=== PATIENT | female | born 1970 | race American Indian/Alaskan Native ===

== ENCOUNTER 2017-02-20 18:30 | Emergency (ER) | payer MEDICARE ==
[2017-02-20 20:13] VITALS: BP 138/80
--- NOTE | 2017-02-20 22:06 | Emergency Department Report ---
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 Patient reports that she does have a past medical history of recurrent ear infections. She denies any nausea vomiting. Upon evaluation of her chart noticed that her blood pressure was elevated at 160/105. Her repeat blood pressure came to 191/99. Discussed with patient that we'll most likely would need to start her on blood pressure medicine. He reports no other past medical history she is currently taking no medication. MD complaint: ear pain -: week(s) (2) Location: R ear, L ear Severity: severe Severity scale (0 -10): 10 Quality: aching Consistency: intermittent - Related Data Previous Rx's Medication Instructions Recorded Last Taken Type Acetaminophen/Codeine [Tylenol 1 tab PO Q6H PRN #20 tab 02/20/17 Unknown Rx /Codeine # 3 tab] Hydrochlorothiazide [HCTZ] 25 mg PO QDAY #30 tablet 02/20/17 Unknown Rx amLODIPine [Norvasc] 5 mg PO DAILY #30 tab 02/20/17 Unknown Rx Allergies Allergy/AdvReac Type Severity Reaction Status Date / Time No Known Allergies Allergy Unverified 02/20/17 18:38 ED Dental HPI - General Chief complaint: Earache Stated complaint: LT EAR PAIN Time Seen by Provider: 02/20/17 20:56 Source: patient Mode of arrival: Ambulatory Limitations: Other - Related Data Previous Rx's Medication Instructions Recorded Last Taken Type Acetaminophen/Codeine [Tylenol 1 tab PO Q6H PRN #20 tab 02/20/17 Unknown Rx /Codeine # 3 tab] Hydrochlorothiazide [HCTZ] 25 mg PO QDAY #30 tablet 02/20/17 Unknown Rx amLODIPine [Norvasc] 5 mg PO DAILY #30 tab 02/20/17 Unknown Rx Allergies Allergy/AdvReac Type Severity Reaction Status Date / Time No Known Allergies Allergy Unverified 02/20/17 18:38 ED Review of Systems ROS: Stated complaint: LT EAR PAIN Other details as noted in HPI Constitutional: denies: chills, fever Eyes: denies: eye pain, eye discharge, vision change ENT: ear pain. denies: throat pain, dental pain Respiratory: denies: cough Cardiovascular: denies: chest pain, palpitations Endocrine: no symptoms reported Gastrointestinal: denies: abdominal pain, nausea, diarrhea Genitourinary: denies: urgency, dysuria, discharge ED Past Medical Hx - Past Medical History Hx Hypertension: No Hx Headaches / Migraines: Yes - Surgical History Hx Breast Surgery: Yes Additional Surgical History: IUD placed - Social History Smoking Status: Never Smoker Substance Use Type: Alcohol, Non Opiate Pain - Medications Home Medications: Home Medications Medication Instructions Recorded Confirmed Last Taken Type Acetaminophen/Codeine [Tylenol 1 tab PO Q6H PRN #20 tab 02/20/17 Unknown Rx /Codeine # 3 tab] Hydrochlorothiazide [HCTZ] 25 mg PO QDAY #30 tablet 02/20/17 Unknown Rx amLODIPine [Norvasc] 5 mg PO DAILY #30 tab 02/20/17 Unknown Rx ED Physical Exam - General Limitations: Other General appearance: alert, in no apparent distress - Head Head exam: Present: atraumatic, normocephalic - Eye Eye exam: Present: normal appearance, PERRL, EOMI - ENT ENT exam: Present: normal exam - Expanded ENT Exam Expanded Ear exam: Absent: auricular hematoma, auricular trauma TM/Canal exam: Loss of Landmarks: Right TM (tampanic membrane has a large scar) ED Course Vital Signs 02/20/17 02/20/17 02/20/17 18:38 20:06 20:11 Temperature 98.2 F Pulse Rate 61 69 84 Respiratory 20 18 18 Rate Blood Pressure 160/105 Blood Pressure 158/89 138/80 [Right] O2 Sat by Pulse 100 100 98 Oximetry 02/20/17 20:13 Temperature Pulse Rate Respiratory 18 Rate Blood Pressure Blood Pressure [Right] O2 Sat by Pulse 98 Oximetry Critical care attestation.: If time is entered above; I have spent that time in minutes in the direct care of this critically ill patient, excluding procedure time. ED Disposition Clinical Impression: Earache on left, HTN (hypertension) Disposition: DISCHARGED TO HOME OR SELFCARE Is pt being admited?: No Does the pt Need Aspirin: No Condition: Stable Instructions: Earache (ED), Hypertension (ED) Additional Instructions: These take pain medication for earache. It's very importantly to follow up with the ear nose and throat doctor. I have listed one below can also take ibuprofen as well to. These did not take pain medication and operate heavy machinery. Please have your blood pressure checked within 1-2 weeks. Take blood pressure medication as prescribed. Follow-up with her primary care provider. Prescriptions: Acetaminophen/Codeine [Tylenol /Codeine # 3 tab] 1 tab PO Q6H PRN #20 tab PRN Reason: Pain amLODIPine [Norvasc] 5 mg PO DAILY #30 tab Hydrochlorothiazide [HCTZ] 25 mg PO QDAY #30 tablet Referrals: KEM PIERCE MD [Staff Physician] - 3-5 Days PRIMARY CARE, [Primary Care Provider] - 3-5 Days LUIS BOND MD [Staff Physician] - 3-5 Days Forms: Accompanied Note, Work/School Release Form(ED)
[2017-02-20] MEDS ORDERED: NORCO 5/325 PO ONE (23:04)
== END 2017-02-20 23:22 | disposition home or self-care (01) ==
LOC: ED 18:30
DX: H92.02 Otalgia, left ear (principal); I10 Essential (primary) hypertension; G43.909 Migraine, unspecified, not intractable, without status migrainosus
CPT/HCPCS: 99282

== ENCOUNTER 2018-04-11 18:47 | Emergency (ER) | payer MEDICARE ==
[2018-04-11 21:01] VITALS: BP 161/90
[2018-04-11 21:23] LABS: Basophils % (Auto) 0.4 % (0.0-1.8); Eosinophils # (Auto) 0.2 K/mm3 (0.0-0.4); Eosinophils % (Auto) 4.6 % (0.0-4.3); Hematocrit 39.1 % (30.3-42.9); Hemoglobin 13.1 gm/dl (10.1-14.3); Lymphocytes # (Auto) 1.9 K/mm3 (1.2-5.4); Lymphocytes % (Auto) 44.5 % (13.4-35.0); Mean Corpuscular HGB Conc 34 % (30-34); Mean Corpuscular Hemoglobin 32 pg (28-32); Mean Corpuscular Volume 95 fl (79-97); Monocytes # (Auto) 0.4 K/mm3 (0.0-0.8); Platelet Count 245 K/mm3 (140-440); Red Blood Count 4.14 M/mm3 (3.65-5.03)
[2018-04-11 21:38] LABS: Alanine Aminotransferase 16 units/L (7-56); Albumin 3.9 g/dL (3.9-5); BUN/Creatinine Ratio 16; Blood Urea Nitrogen 11 mg/dL (7-17); Calcium 9.3 mg/dL (8.4-10.2); Hemolysis Index 6
[2018-04-11 22:01] LABS: Bacteria,Urine 1+ /HPF (Negative); Bilirubin,Urine NEG (Negative); Blood,Urine NEG (Negative); Color,Urine Yellow (Yellow); Mucus,Urine 1+ /HPF; Protein,Urine <15 mg/dL mg/dL (Negative)
--- NOTE | 2018-04-12 00:33 | Emergency Department Report ---
ED Abdominal Pain HPI - General Chief Complaint: Abdominal Pain Stated Complaint: CONSTIPATION Time Seen by Provider: 04/11/18 23:18 Source: patient Mode of arrival: Stretcher Limitations: Language Barrier - History of Present Illness Initial Comments: 47-year-old -[place] female comes in complaining of abdominal pain radiating into her left flank and rectum, constipation 3-4 days, patient reports he feels bloated at times. Patient denies any black tarry stool denies any bright red blood stool reports her last BM was on 5:30 denies any nausea no vomiting no fever. Patient has a past medical history of bilateral lumpectomies has IUD placed history of migraines and she is deaf. Patient is able to read lips. MD Complaint: abdominal pain, flank pain -: days(s) (since 03/28/2018) Radiation: LUQ, LLQ, L flank Severity: moderate Severity scale (0 -10): 6 Quality: cramping, aching Consistency: intermittent - Related Data Previous Rx's Medication Instructions Recorded Last Taken Type Acetaminophen/Codeine [Tylenol 1 tab PO Q6H PRN #20 tab 02/20/17 Unknown Rx /Codeine # 3 tab] Hydrochlorothiazide [HCTZ] 25 mg PO QDAY #30 tablet 02/20/17 Unknown Rx amLODIPine [Norvasc] 5 mg PO DAILY #30 tab 02/20/17 Unknown Rx Ibuprofen [Motrin 800 MG tab] 800 mg PO Q8HR PRN #15 tablet 04/12/18 Unknown Rx Nitrofurantoin Monohyd/M-Cryst 100 mg PO BID #14 capsule 04/12/18 Unknown Rx [Macrobid 100 mg Capsule] Polyethylene Glycol 3350 [Miralax 17 gm PO QDAY #1 box 04/12/18 Unknown Rx 3350] Allergies Allergy/AdvReac Type Severity Reaction Status Date / Time No Known Allergies Allergy Unverified 02/20/17 18:38 ED Review of Systems ROS: Stated complaint: CONSTIPATION Other details as noted in HPI ED Past Medical Hx - Past Medical History Previous Medical History?: Yes Hx Hypertension: No Hx Headaches / Migraines: Yes - Surgical History Past Surgical History?: Yes Hx Breast Surgery: Yes (bilat lumpectomy, total 5) Additional Surgical History: IUD placed - Social History Smoking Status: Never Smoker Substance Use Type: None - Medications Home Medications: Home Medications Medication Instructions Recorded Confirmed Last Taken Type Acetaminophen/Codeine [Tylenol 1 tab PO Q6H PRN #20 tab 02/20/17 Unknown Rx /Codeine # 3 tab] Hydrochlorothiazide [HCTZ] 25 mg PO QDAY #30 tablet 02/20/17 Unknown Rx amLODIPine [Norvasc] 5 mg PO DAILY #30 tab 02/20/17 Unknown Rx Ibuprofen [Motrin 800 MG tab] 800 mg PO Q8HR PRN #15 tablet 04/12/18 Unknown Rx Nitrofurantoin Monohyd/M-Cryst 100 mg PO BID #14 capsule 04/12/18 Unknown Rx [Macrobid 100 mg Capsule] Polyethylene Glycol 3350 [Miralax 17 gm PO QDAY #1 box 04/12/18 Unknown Rx 3350] ED Physical Exam - General Limitations: Language Barrier General appearance: alert, in no apparent distress - Head Head exam: Present: atraumatic, normocephalic - Eye Eye exam: Present: normal appearance - ENT ENT exam: Present: mucous membranes moist - Neck Neck exam: Present: normal inspection - Respiratory Respiratory exam: Present: normal lung sounds bilaterally. Absent: respiratory distress - GI/Abdominal GI/Abdominal exam: Present: soft, tenderness (luq), normal bowel sounds. Absent : distended - Extremities Exam Extremities exam: Present: normal inspection, full ROM. Absent: tenderness - Back Exam Back exam: Present: normal inspection. Absent: CVA tenderness (R), CVA tenderness (L) - Neurological Exam Neurological exam: Present: alert, oriented X3 - Psychiatric Psychiatric exam: Present: normal affect, normal mood - Skin Skin exam: Present: warm, dry, intact, normal color. Absent: rash ED Course Vital Signs 04/11/18 04/11/18 20:47 21:40 Temperature 97.7 F Pulse Rate 59 L Respiratory 18 18 Rate Blood Pressure 161/90 O2 Sat by Pulse 98 Oximetry ED Medical Decision Making - Lab Data Result diagrams: 04/11/18 21:06 04/11/18 21:06 - Radiology Data Radiology results: report reviewed, image reviewed FINAL REPORT EXAM: XR ABDOMEN 1V AP HISTORY: abdominal pain COMPARISON: None available. FINDINGS: AP view of the abdomen obtained. Small to moderate amount of stool in the colon. Gas scattered within non dilated bowl loops. No gross pathologic calcifications. Bony structures are grossly intact. IMPRESSION: Small to moderate amount of stool in the colon. Nonobstructive bowel gas pattern. Transcribed By: LMA Dictated By: ELAYNE HE MD Electronically Authenticated By: ELAYNE HE MD Signed Date/Time: 04/12/1853 DD/ TD/TT: 04/12/1853 Critical care attestation.: If time is entered above; I have spent that time in minutes in the direct care of this critically ill patient, excluding procedure time. ED Disposition Clinical Impression: UTI (urinary tract infection) Qualifiers: Urinary tract infection type: acute cystitis Hematuria presence: without hematuria Qualified Code(s): N30.00 - Acute cystitis without hematuria Constipation Qualifiers: Constipation type: unspecified constipation type Qualified Code(s): K59.00 - Constipation, unspecified Disposition: - TO HOME OR SELFCARE Is pt being admited?: No Does the pt Need Aspirin: No Condition: Stable Instructions: Abdominal Pain (ED) Additional Instructions: Please take antibiotics as prescribed. If symptoms persist or gets worse please follow up with her primary care provider. Prescriptions: Ibuprofen [Motrin 800 MG tab] 800 mg PO Q8HR PRN #15 tablet PRN Reason: Pain Nitrofurantoin Monohyd/M-Cryst [Macrobid 100 mg Capsule] 100 mg PO BID #14 capsule Polyethylene Glycol 3350 [Miralax 3350] 17 gm PO QDAY #1 box Referrals: EVY FAROOQ MD [Primary Care Provider] - 3-5 Days Forms: Work/School Release Form(ED)
--- NOTE | 2018-04-12 00:58 | XRay Report ---
FINAL REPORT EXAM: XR ABDOMEN 1V AP HISTORY: abdominal pain COMPARISON: None available. FINDINGS: AP view of the abdomen obtained. Small to moderate amount of stool in the colon. Gas scattered within non dilated bowl loops. No gross pathologic calcifications. Bony structures are grossly intact. IMPRESSION: Small to moderate amount of stool in the colon. Nonobstructive bowel gas pattern.
[2018-04-12] MEDS ORDERED: MOTRIN PO ONE (01:26)
== END 2018-04-12 02:30 | disposition home or self-care (01) ==
LOC: ED 18:47
DX: N39.0 Urinary tract infection, site not specified (principal); K59.00 Constipation, unspecified; G43.909 Migraine, unspecified, not intractable, without status migrainosus
CPT/HCPCS: 36415; 74018; 80053; 81001; 85025; 99284